=== PATIENT | female | born 1995 | race African-American/Black ===

== ENCOUNTER 2021-07-27 12:09 | Emergency (ER) | payer SELFPAY ==
[~2021-07-27] VITALS: Ht 162.6 cm; Wt 74.1 kg
[2021-07-27 12:14] VITALS: BP 128/88
[2021-07-27] MEDS ORDERED: morphine 4 MG/ML inj SYRINge IV ONE (13:05)
[2021-07-27] MEDS ORDERED: ondansetron/PF 4mg/2ml inj IV ONE (13:05)
[2021-07-27] MEDS ORDERED: BENZ-38 PO (14:11)
[2021-07-27] MEDS ORDERED: AMOX-422 PO (14:11)
[2021-07-27] MEDS ORDERED: ALBU8HFA PO (14:11)
== END 2021-07-27 14:56 | disposition home or self-care (01) ==
LOC: ER 12:10
DX: J20.9 Acute bronchitis, unspecified (principal); Z20.822 Contact with and (suspected) exposure to COVID-19
CPT/HCPCS: 71045; 87502; 87503; 87635; 99284; C9803